=== PATIENT | male | born 1970 | race Two or more races ===

== ENCOUNTER 2016-08-29 13:04 | Outpatient (CLI) | payer MEDICARE, OTHER ==
--- NOTE | 2016-08-29 13:55 | Diagnostic Imaging Report ---
Indication: Cough Comparison: None 2 views of the chest obtained. Findings: Cardiomediastinal silhouette and pulmonary vascularity are within normal limits for age. The diaphragmatic contour is smooth and costophrenic angles are sharp. No pleural effusions are identified. The bones are unremarkable. Impression: No acute disease
== END 2016-08-29 15:04 | disposition home or self-care (01) ==
LOC: RAD 13:04
DX: R05 Cough (principal)
CPT/HCPCS: 71020